=== PATIENT | female | born 1965 | race Two or more races ===

== ENCOUNTER 2017-05-11 10:05 | Emergency (ER) | payer OTHER ==
[2017-05-11 10:10] VITALS: BP 149/90; PULSE 89; RESP 18; O2SAT 100
--- NOTE | 2017-05-11 10:11 | NUR ---
Responded to GEOSPATIAL SCIENTIST in CT. Oxygen 100% HR 69. Talking about chest pressure. Addendum: 05/11/17 at 1012 by MARKEL APPLE RCP HR was 79 not 69
--- NOTE | 2017-05-11 10:12 | ED.REPORT ---
HPI-Allergic Reaction Date of Service May 11, 2017 ED Provider: Brendan Middleton MD Patient is a 51 year old female with a history of a heart murmur who presents to the ED due to an allergic reaction to IV contrast that she received at 1000 this morning. Associated symptoms include pressure in her chest and shortness of breath. She denies itching, swelling in her mouth or wheezing. The patient states that she was scheduled to have an outpatient abdomen and pelvis CT this morning and did not feel any symptoms of illness before the contrast. She states that the pressure in her chest has improved but that it is still present. Nursing Notes Stated Complaint: REACTION TO CT CONTRAST Chief Complaint: Chest Pain Nursing Notes Reviewed: Yes Allergies: Coded Allergies: Penicillins (Verified Allergy, Severe, Anaphylaxis, 08/26/15) ibuprofen (Verified Allergy, Intermediate, Rash,Itching,, 08/26/15) cephalexin (Verified Allergy, Unknown, Anaphylaxis, 08/26/15) No Active Prescriptions or Reported Meds General Time Seen by MD: 10:11 Chief Complaint Allergic reaction Hx Obtained From: Patient Arrived By: Walk-in Onset Occurred: 1 - 15 minutes ago Context of Onset: Other (IV contrast) Symptom Duration: Since onset Progression Since Onset: Gradually improving Location: : Chest Quality: Pressure Radiation: Does not radiate Severity: Current: Mild Associated with: Denies: Difficulty swallowing, Throat swollen, Wheezing Recent Healthcare: Recent doctor visit Similar Sx Previous: No Past Medical History Past Surgical History Reports: Tubal ligation Smoking History Current Every Day Smoker Social History Alcohol Use: "Social" Drug Use: Denies drug use Occupation single, no work or school Ambulatory Status Independent Review of Systems Constitutional: Denies: Chills, Fever Ears / Nose / Throat: Denies: Throat swelling, Tongue swelling Respiratory: Reports: Shortness of breath, Denies: Non-productive cough, Wheezing Skin: Denies Itching, Denies Rash Complete sys rev & neg: except as marked. Cardiovascular: Reports: Chest pain Physical Exam Initial Vital Signs Vital Signs (First) Date Time Temp Pulse Resp B/P Pulse Ox O2 Delivery O2 Flow Rate FiO2 05/11/17 10:10 36.6 89 18 149/90 100 Room Air Initial VS: Reviewed General/Constitutional: Awake, Alert, No acute distress Respiratory / Chest: Atraumatic, Breath sounds NL, Breath sounds = bilat, No respiratory distress, No wheezing Cardiovascular: Heart rate NL, Regular rhythm, Heart sounds NL Skin: Atraumatic, Color NL, No rash, Warm, Dry Head / Eyes: Atraumatic, Normocephalic, PERRL, EOMI ENT: Atraumatic, Airway patent, Mucous membranes moist, Pharynx NL Neurologic: Oriented X3, Speech NL, No motor deficits, No sensory deficits Upper Extremity / MS: Atraumatic, Inspection NL Psychiatric: Affect NL, Mood NL Re-Eval/Medical Decision Re-Evaluation/Progress : Re-Evaluation/Progress Note: Discussed that her symptoms were likely due to a reaction to the IV contrast. Discussed plan for discharge. Patient understands and agrees to the plan. All questions were addressed. Counseled Regarding: Diagnosis, Need for follow-up, When/why to return to ED Discharge & Departure Primary Impression: Allergic to IV contrast Disposition: Home Discharge Condition All VS Reviewed: Yes Condition: Stable Additional Instructions: It is likely that you were experiencing an allergic reaction to the IV contrast you received. Be sure to mention this before getting a CT scan in the future. Follow up with your primary care physician later this week. Return to the emergency department if you develop any new or concerning symptoms. Referrals: [facility] Scribe Attestation Portions of this note were transcribed by Susu Oliva. I, Dr. Middleton personally performed the history, physical exam and medical decision-making; I reviewed and confirmed the accuracy of the information in the transcribed note. Signed by: Federica Reynolds, 05/11/17 and 1030. copies to: [facility] Brendan Middleton MD May 11, 2017 10:12 Lisa Oliva May 11, 2017 10:22 Brendan Middleton MD May 11, 2017 10:12 Lisa Oliva May 11, 2017 10:22
[2017-05-11 11:04] VITALS: BP 127/57; PULSE 78; RESP 16; O2SAT 98
== END 2017-05-11 11:06 | disposition home or self-care (01) ==
LOC: SED 10:05
DX: T50.8X5A Adverse effect of diagnostic agents, initial encounter (principal); X58.XXXA Exposure to other specified factors, initial encounter; Y93.89 Activity, other specified; Y92.238 Other place in hospital as the place of occurrence of the external cause; Y99.8 Other external cause status; F17.200 Nicotine dependence, unspecified, uncomplicated; Z91.041 Radiographic dye allergy status; Z88.0 Allergy status to penicillin; Z88.1 Allergy status to other antibiotic agents; Z88.6 Allergy status to analgesic agent

== ENCOUNTER 2017-05-13 16:08 | Emergency (ER) | payer OTHER ==
[~2017-05-13] VITALS: Ht 160 cm; Wt 59.8 kg
[2017-05-13 16:34] VITALS: BP 120/67; PULSE 74; RESP 18; O2SAT 99
[2017-05-13 18:02] LABS: BASOPHILS % (AUTO) 0.5 % (0-3); EOSINOPHILS % (AUTO) 5.9 % (0-5); MONOCYTES % (AUTO) 8.1 % (4-12); Mean Corpuscular Hemoglobin 31.9 pg (27.0-35.0); Mean Corpuscular Volume 93.9 fL (81-100); NEUTROPHILS % (AUTO) 43.3 % (40-74); Platelet Count 282 bil/L (150-400)
--- NOTE | 2017-05-13 18:23 | DRSVH ---
PROCEDURE: X-RAY CHEST, TWO VIEWS ([id number]) INDICATIONS: chest pain TECHNIQUE: 2 views of the chest were acquired. COMPARISON: None. FINDINGS: Surgical changes and devices: None. Lungs and pleura: No pleural effusions or pneumothorax. Lungs are clear. Mediastinum: Mediastinal contours are normal. Heart size is normal. Bones and chest wall: No suspicious bony abnormalities. Soft tissues appear unremarkable. IMPRESSION: 1. No acute cardiopulmonary disease. Dictated by: Pranav Altamirano M.D. on 05/13/2017 at 18:20 Approved by: Pranav Altamirano M.D. on 05/13/2017 at 18:21
[2017-05-13 18:57] LABS: TROPONIN T < 0.010 ug/L (0.0-0.011)
[2017-05-13 19:07] VITALS: BP 110/65; PULSE 72; RESP 12; O2SAT 99
--- NOTE | 2017-05-13 19:49 | ED.REPORT ---
HPI-Chest Pain 40 and Over Date of Service May 13, 2017 ED Provider: Dr. Brendan Middleton MD A 51 year old female with a history of hepatitis C, borderline diabetes and a heart murmur presents to the ED with chest pressure that began 3 days ago. Patient was seen in the ED on 05/11 for an allergic reaction to IV contrast with associated chest pressure, fatigue and shortness of breath. The patient presents today with similar symptoms. She denies any previous similar symptoms prior to the CT scan. Patient denies history of PE or DVT. Nursing Notes Stated Complaint: CHEST TIGHTNESS REACTION TO CT CONTRAST Chief Complaint: General Complaint Nursing Notes Reviewed: Yes Allergies: Coded Allergies: Penicillins (Verified Allergy, Severe, Anaphylaxis, 08/26/15) ibuprofen (Verified Allergy, Intermediate, Rash,Itching,, 08/26/15) cephalexin (Verified Allergy, Unknown, Anaphylaxis, 08/26/15) No Active Prescriptions or Reported Meds General Time Seen by MD: 19:48 Chief Complaint Chest pressure Hx Obtained From: Patient Arrived By: Walk-in Sudden in Onset?: No Onset Occurred: 3 days ago Symptom Duration: Since onset Location: : Chest left: Chest right Quality: Pressure Radiation: : Does not radiate Migration/Movement: Reports: None Severity: Current: Mild Severity: Maximum: Mild Associated with: Reports: Fatigue, Shortness of Breath Pertinent Negative: Pt denies other symptoms Recent Healthcare: No recent hospitalization, Recent doctor visit Risk Factors )( CAD Risk Stratification Risk factors reviewed )( TAD Risk Stratification Risk factors reviewed )( PE Risk Stratification Risk factors reviewed Well's Criteria for PE Well's PE Score: 0-2 pts (low risk 3.6%) Past Medical History Past Medical History Heart murmur Hepatitis C Past Surgical History Denies Reports: Tubal ligation Smoking History Current Every Day Smoker Social History Alcohol Use: "Social" Drug Use: Denies drug use Other Social History: Good social support, , Local resident Occupation single, no work or school Ambulatory Status Independent Review of Systems Constitutional: Reports: Fatigue Respiratory: Reports: Shortness of breath Cardiovascular: Reports: Chest pain Complete sys rev & neg: except as marked. Physical Exam Initial Vital Signs Vital Signs (First) Date Time Temp Pulse Resp B/P Pulse Ox O2 Delivery O2 Flow Rate FiO2 05/13/17 16:34 36.6 74 18 120/67 99 05/13/17 19:07 Room Air Initial VS: Reviewed Head / Eyes: Atraumatic, Normocephalic, PERRL Neck: Supple, Non-tender, Full range of motion Extremities: Vascular intact, Neuro intact, No swelling, No tenderness Skin: Warm, Dry, No cyanosis Neurologic: Alert, Oriented, Nonfocal Psychiatric: Mood/affect normal, Behavior normal, Normal thought content General/Constitutional: Awake, Alert, No acute distress, Well appearing, Well developed Respiratory / Chest: Atraumatic, Breath sounds NL, Breath sounds = bilat, No respiratory distress Cardiovascular: Heart rate NL, Regular rhythm Abdomen: Atraumatic, Soft, Non-tender Interpretation & Diagnostics Lab Results Interpretation Result Diagram: 05/13/17 1758 05/13/17 1758 Test 05/13/17 17:58 05/13/17 20:50 White Blood Count 9.3th/mm3 (3.8-10.1) Red Blood Count 4.08mil/mm3 (3.90-5.20) Hemoglobin 13.0g/dL (12.0-15.6) Hematocrit 38.3% (35.0-46.0) Mean Corpuscular Volume 93.9fL (81-100) Mean Corpuscular Hemoglobin 31.9pg (27.0-35.0) Mean Corpuscular Hemoglobin Concent 33.9% (32.0-37.0) Red Cell Distribution Width 12.4% (12.3-15.4) Platelet Count 282bil/L (150-400) Neutrophils (%) (Auto) 43.3% (40-74) Lymphocytes (%) (Auto) 42.1% (14-46) Monocytes (%) (Auto) 8.1% (4-12) Eosinophils (%) (Auto) 5.9% (0-5) Basophils (%) (Auto) 0.5% (0-3) Sodium Level 139mEq/L (134-144) Potassium Level 3.8mEq/L (3.5-5.2) Chloride Level 101mEq/L (97-108) Carbon Dioxide Level 25mmol/L (18-29) Blood Urea Nitrogen 13mg/dL (6-24) Creatinine 0.52mg/dL (0.57-1.00) Estimat Glomerular Filtration Rate 177mL/min (>59) Glucose Level 103mg/dL (60-99) Calcium Level 9.0mg/dL (8.5-10.1) Total Bilirubin 0.2mg/dL (0.0-1.2) Aspartate Amino Transf (AST/SGOT) 25U/L (0-50) Alanine Aminotransferase (ALT/SGPT) 24U/L (0-32) Alkaline Phosphatase 86U/L (25-150) Troponin T < 0.010ug/L (0.0-0.011) Total Protein 7.1g/dL (6.4-8.4) Albumin 4.2g/dL (3.4-5.0) D-Dimer < 0.50mg/L FEU (<0.50) ECG Interpretation ECG Interpretation: Sinus Rhythm Rate 77 Time: 17:47 Interpreted by: ED physician X-Ray Chest Interpretation Chest Xray Interpretation: IMPRESSION: 1. No acute cardiopulmonary disease. Dictated by: Pranav Altamirano M.D. on 05/13/2017 at 18:20 Interpretation / Wet Read by: Interpret - Radiologist Re-Eval/Medical Decision Time of Eval: 21:33 Patient Status: Condition improved Re-Evaluation/Progress Note: Patient is rechecked. Her pain has improved. She is informed of her results and diagnosis. All questions are addressed at this time. She understands and agrees with the intended treatment plan. Counseled Regarding: Diagnosis, Lab results, Need for follow-up, When/why to return to ED Discharge & Departure Primary Impression: Chest pain Chest pain type: unspecified Qualified Code: R07.9 - Chest pain, unspecified Disposition: Home Discharge Condition All VS Reviewed: Yes Condition: Improved Patient Instructions: Chest Pain (ED) Additional Instructions: Thank you for trusting us with you care this evening. Your emergency department evaluation today including lab work, EKG and chest X- ray are reassuring that there is no emergent cause for concern at this time, however a clear cause of your symptoms was not identified. I recommend that you follow up with your primary care physician in the next week for a recheck, if symptoms persist. Please return to the emergency department for any new or worsening symptoms including fever, chills, nausea, vomiting, worsening pain, lightheadedness, weakness, or any numbness/tingling. Referrals: [facility] (PCP) Scribe Attestation Portions of this note were transcribed by Miguelito Scott. I, Dr. Middleton personally performed the history, physical exam and medical decision-making; I reviewed and confirmed the accuracy of the information in the transcribed note. copies to: [facility] Kirk H MD May 13, 2017 19:49 MIGUELITO SCOTT May 13, 2017 19:56
[2017-05-13 21:57] VITALS: BP 118/64; PULSE 76; RESP 14; O2SAT 99
== END 2017-05-13 21:58 | disposition home or self-care (01) ==
LOC: SED 16:08
DX: R07.9 Chest pain, unspecified (principal); F17.200 Nicotine dependence, unspecified, uncomplicated; Z88.0 Allergy status to penicillin; Z88.1 Allergy status to other antibiotic agents; Z88.6 Allergy status to analgesic agent